=== PATIENT | male | born 1990 | race Hispanic/Latino ===

== ENCOUNTER 2018-01-12 20:11 | Emergency (ER) | payer OTHER ==
[~2018-01-12] VITALS: Ht 170.2 cm; Wt 68.0 kg
[~2018-01-12 20:11] MED LIST: AMOXICILLIN875 M1 PO; IBUPROFEN800 M1 PO; TAMIFLU 75MG75 MG PO; ZOFRAN4 M1 SL
--- NOTE | 2018-01-12 20:43 | RADIOLOGY REPORT ---
EXAMINATION: RIGHT HAND, 3 VIEWS RIGHT WRIST, 4 VIEWS CLINICAL INFORMATION: Trauma. COMPARISON: None TECHNIQUE: 3 views of the right hand and 4 views of the right wrist. FINDINGS: No acute fracture or dislocation is seen. The joint spaces are maintained. Bony mineralization is normal. The distal forearm bones appear normal. The carpal bones are in normal anatomic alignment. The carpal rows are preserved. The soft tissues are unremarkable. IMPRESSION: No acute osseous traumatic findings of the right hand or right wrist.
[2018-01-12 20:47] VITALS: BP 133/70
[2018-01-12] MEDS ORDERED: KEFLEX500 M1 PO (21:35)
[2018-01-12] MEDS ORDERED: IBUPROFEN800 M1 PO (21:35)
--- NOTE | 2018-01-12 21:35 | ED HAND/WRIST INJURY COMPLAINT ---
History of Present Illness General Chief Complaint: Hand or Wrist Injury Stated Complaint: RIGHT HAND INJURY PER PT Source: patient Exam Limitations: no limitations Vital Signs & Intake/Output Vital Signs & Intake/Output Vital Signs Date Time Temp Pulse Resp B/P B/P Pulse O2 O2 Flow FiO2 Mean Ox Delivery Rate 01/13 2108 98.2 01/12 2047 98.2 80 16 133/70 98 Room Air Room Air Allergies Coded Allergies: apple (Severe, ANAPHYLAXIS 01/12/18) Reconcile Medications Cephalexin (Keflex) 500 MG CAPSULE 1 CAP PO TID CELLULITIS Ibuprofen 800 MG TABLET 1 TAB PO TID PRN PAIN Triage Note: PT TO TRIAGE WITH RIGHT HAND PAIN S/P PUNCHING PEOPLE. PT HAS SMALL SWOLLEN AREA TO RIGHT 4 METACARPAL. Triage Nurses Notes Reviewed? yes Occurred: yesterday Duration: day(s): (2), constant, continues in ED Timing: single episode today Injury Environment: home Severity: moderate, severe Severity Numbers: 8 Pain/Injury Location: Right: Hand. Context: blow Method of Injury: direct blow No Modifying Factors: none Associated Symptoms: swelling, redness HPI: 27-year-old male with no past medical history of present for evaluation of pain and swelling to his right hand. Patient states he punched a wall yesterday before symptoms started. He states that the pain is located mostly around the fourth and fifth knuckles. That area is swollen and red. No numbness or tingling pain is worse with movement. No other injury no wrist pain. (Randy Desai) Past History Travel History Traveled to [place] past 21 day No Medical History Any Pertinent Medical History? see below for history Neurological: NONE EENT: NONE Cardiovascular: NONE Respiratory: NONE Gastrointestinal: NONE Hepatic: NONE Renal: NONE Musculoskeletal: NONE Psychiatric: NONE Endocrine: NONE Blood Disorders: NONE Cancer(s): NONE PROJECT MANAGEMENT PROFESSIONAL/Reproductive: NONE Surgical History Surgical History: N Psychosocial History What is your primary language Icelandic Tobacco Use: Current Daily Use Daily Tobacco Use Amount/Type: => 5 Cigarettes daily Illicit Drug Use: marijuana Family History Hx Contributory? No (Randy Desai) Review of Systems Review of Systems Constitutional: Reports: no symptoms. EENTM: Reports: no symptoms. Respiratory: Reports: no symptoms. Cardiovascular: Reports: no symptoms. GI: Reports: no symptoms. Genitourinary: Reports: no symptoms. Musculoskeletal: Reports: joint pain, joint swelling. Skin: Reports: no symptoms. Neurological/Psychological: Reports: no symptoms. Hematologic/Endocrine: Reports: no symptoms. Immunologic/Allergic: Reports: no symptoms. All Other Systems: Reviewed and Negative (Randy Desai) Physical Exam Physical Exam General Appearance: well developed/nourished, no apparent distress, alert, awake Head: atraumatic, normal appearance Eyes: Bilateral: normal appearance, EOMI. Ears, Nose, Throat: hearing grossly normal Neck: normal inspection, supple, full range of motion Cardiovascular/Respiratory: normal peripheral pulses, no respiratory distress Elbow Left: normal range of motion, normal inspection Elbow Right: normal range of motion, normal inspection Forearm Left: normal range of motion, normal inspection Forearm Right: normal range of motion, normal inspection Wrist Left: normal range of motion, normal inspection Wrist Right: normal range of motion, normal inspection Hand Left: normal inspection, normal range of motion Hand Right: normal range of motion, evidence of injury, swelling, tender, there is swelling and erythema located over the fourth and fifth knuckles extending down to the dorsum of the hand. There is tender palpation no gross deformity for range of motion is intact. Neurovascular supply intact no snuffbox tenderness no wrist tenderness Neurologic/Tendon: normal sensation, normal motor functions, normal tendon functions, responds to pain, no evidence tendon injury Skin: intact, normal color, warm/dry (Randy Desai) Progress Differential Diagnosis: abscess, cellulitis, contusion, dislocation, fracture, septic arthritis, sprain, tenosynovitis Plan of Care: pt seen and evaluated. He has an area of erythema over the right fourth and fifth metacarpophalangeal joints. No bruising full range motion intact. X-ray negative for fracture. Suspect contusion versus early cellulitis. Patient was instructed to rest ice elevation compression Jonny wrap applied. Tylenol and Profen. Monitor the area is any spreading redness worsening swelling worsening pain may ribs and cellulitis patient was given a prescription for cephalexin hold onto. Discussed return precautions patient agrees the plan Diagnostic Imaging: Viewed by Me: Radiology Read. Discussed w/RAD: Radiology Read. Radiology Impression: PATIENT: GULSHAN LUONG PRESENT AGE: 27 PATIENT ACCOUNT NO: [id number] : 90 LOCATION: [facility] ORDERING PHYSICIAN: Kobi Doyle MD SERVICE DATE: 01/12/18 EXAM TYPE: RAD - XRY-HAND, RIGHT; XRY-WRIST COMPLETE-RIGHT EXAMINATION: RIGHT HAND, 3 VIEWS RIGHT WRIST, 4 VIEWS CLINICAL INFORMATION: Trauma. COMPARISON: None TECHNIQUE: 3 views of the right hand and 4 views of the right wrist. FINDINGS: No acute fracture or dislocation is seen. The joint spaces are maintained. Bony mineralization is normal. The distal forearm bones appear normal. The carpal bones are in normal anatomic alignment. The carpal rows are preserved. The soft tissues are unremarkable. IMPRESSION: No acute osseous traumatic findings of the right hand or right wrist. DICTATED BY: Konstantin Navarro MD DATE/TIME DICTATED: 01/12/182037 [facility] ATTENDANT:ONEL DATE/TIME TRANSCRIBED:01/12/182037 CONFIDENTIAL, DO NOT COPY WITHOUT APPROPRIATE AUTHORIZATION. (Randy Desai) Departure Departure Disposition: HOME OR SELF CARE Condition: Stable Clinical Impression Primary Impression: Right hand pain Referrals: Georgina ALLAN,Imer Ac MD,Dominic De Paz MD,Ghanshyam Rene. Patient Has No Primary Care Dr (PCP/Family) Additional Instructions: Rest, avoid excessive physical activity and lifting or bending. Wear Jonny wrap. Apply ice for 15-20 minutes every few hours. Use ibuprofen 800 mg every 8 hours with food as needed for pain. Monitor symptoms closely. If YOU notices spreading redness worsening swelling worsening pain start antibiotics for the full course otherwise the redness likely related to bruising will go away in its own. He should follow-up with a primary care doctor for a recheck in a few days. If you have any other concerns return immediately. Departure Forms: Customer Survey General Discharge Information Prescriptions: Current Visit Scripts Cephalexin (Keflex) 1 CAP PO TID #21 CAP Ibuprofen 1 TAB PO TID PRN PAIN #30 TAB (Randy Desai) Departure Comments [x] I have reviewed the ED Record and agree with the PA's/TUBER MACHINE CUTTER's documentation. (Yanira ALLAN,Kobi Trinh) ED Attending Observation Initial Observation Note: I have seen and personally examined GULSHAN LUONG on 01/14/18 at 1114. I agree with the current emergency department documentation. The disposition (admission or discharge) is uncertain at this time, he needs a period of observation for the following reason(s): The ED Nurse caring for this patient has been personally informed as to what the patient is being observed for. (Praveen COLUNGA,Randy)
== END 2018-01-12 21:38 ==
LOC: ERH 20:11
DX: M79.641 Pain in right hand (principal)
CPT/HCPCS: 73110-RT; 73130-RT